=== PATIENT | female | born 1980 | race Hispanic/Latino ===

== ENCOUNTER → 2023-12-29 12:51 | Outpatient (CLI) | payer OTHER, SELFPAY | LOC: PHYS 12:54 | PROVIDERS: Family Provider Emergency Medicine; PCP Physician Assistant; Referring Provider Emergency Medicine; Visit Provider Emergency Medicine | DX: S16.1XXD Strain of muscle, fascia and tendon at neck level, subsequent encounter (principal) | CPT/HCPCS: 95885; 95886; 95913 ==